=== PATIENT | male | born 1965 | race Caucasian/White ===

== ENCOUNTER 2020-12-03 16:53 | Inpatient (IN) | payer BC ==
[~2020-12-03] VITALS: Ht 175.3 cm; Wt 109.0 kg
--- NOTE | 2020-12-03 17:06 | NUR ---
AYAD ERICKSON as transfer from [facility]. C/O SOB with leg swelling x7 months, worse over last 2 days. Pt with frequent productive cough. Pt diagnosed with PNA and possible sepsis at previous facility. Pt denies pain, is able to speak in full sentences when not coughing. Pt able to position self for comfort in bed independently. Continuous oxygen, BP and heart monitors applied, all safety measures observed.
--- NOTE | 2020-12-03 17:07 | NUR ---
Dr. Marcelino at bedside to evaluate pt.
[2020-12-03] MEDS ORDERED: METHYLPREDNISOLONE SOD SUCC IV ONE (17:30)
[2020-12-03] MEDS ORDERED: ALBUTEROL SULFATE 2.5 MG/3 ML NPPB ONE (17:30)
[2020-12-03] MEDS ORDERED: methylPREDNISolone SOD SUCC 125 MG/2 ML IVPB ONE (17:30)
[2020-12-03] MEDS ORDERED: DEXTROSE 5% IV ONE (17:30)
[2020-12-03 17:49] LABS: MEAN CORPUSCULAR HEMOGLOBIN 27.7 pg (27.5-34.5); MEAN CORPUSCULAR HGB CONC 33.7 g/dL (33.2-36.2); MEAN PLATELET VOLUME 8.2 fL (7.4-10.4); PLATELET COUNT 285 x10^3/uL (130-400); RED CELL DISTRIBUTION WIDTH 14.1 % (9.4-14.8)
[2020-12-03 18:03] LABS: ALANINE AMINOTRANSFERASE 22 U/L (12-78); ANION GAP 7 mmol/L (5-15); CALCIUM 8.4 mg/dL (8.5-10.1); CHLORIDE 100 mmol/L (98-107); CREATININE 2.77 mg/dL (0.7-1.3)
[2020-12-03 18:07] LABS: ALKALINE PHOSPHATASE 78 U/L (45-117); BILIRUBIN,TOTAL 0.5 mg/dL (0.2-1.0); TOTAL PROTEIN 6.9 g/dL (6.4-8.2); TROPONIN I 0.029 ng/mL (0.000-0.045)
[2020-12-03 18:08] LABS: <PLATELET ESTIMATE> ADEQUATE; <PLT MORPHOLOGY> NORMAL PLT MORPH; <RBC MORPHOLOGY> NORMAL; BAND#(MANUAL) 3.04 x10^3/uL; BANDS%(MANUAL) 14 % (0-7); LYMPH#(MANUAL) 0.65 x10^3/uL (1-3.4); LYMPHS% (MANUAL) 3 % (22-44); MONOS#(MANUAL) 0.43 x10^3/uL (0.3-2.7); MONOS% (MANUAL) 2 % (2-9); PMNS WITH VACUOLES 1+; SEG#(MANUAL) 17.58 x10^3/uL (1.8-6.8); SEGS% (MANUAL) 81 % (42-75)
--- NOTE | 2020-12-03 18:27 | NUR ---
US tech at bedside to perform ordered studies.
[2020-12-03] MEDS ORDERED: ONDANSETRON 2MG/ML, 2ML IVPush PRN ×2 (18:30→19:30)
--- NOTE | 2020-12-03 18:38 | NUR ---
Discussed with Dr. Marcelino that pt has not had any fluid bolus and critical lab results. Sepsis flow sheet reviewed. Orders recieved for 500mL NS bolus. IVF initiated at this time.
--- NOTE | 2020-12-03 18:58 | NUR ---
RECEIEVED REPORT FROM ROSETTA SUGGS. TRANSFER OF CARE.
[2020-12-03] MEDS ORDERED: SODIUM CHLORIDE 0.9%, 500ML IVBOLUS ONE (19:00)
[2020-12-03] MEDS ORDERED: ONDANSETRON 2MG/ML, 2ML ONE (19:08)
--- NOTE | 2020-12-03 19:13 | NUR ---
Patient is resting comfortably in bed. Bed in lowest, rails engaged, call light on lap. Vital Signs within normal limits. WCTM. pt medicated per emar due to vomitting 15 minutes ago and eeling mildly nauscious. no additional needs or questions at this time.
[2020-12-03] MEDS ORDERED: METF500T17 PO (19:17)
[2020-12-03] MEDS ORDERED: INSU100I11 SC (19:17)
[2020-12-03] MEDS ORDERED: INSU100I13 SC (19:17)
[2020-12-03] MEDS ORDERED: DOCUSATE 100 MG CAPSULE PO PRN (19:30)
[2020-12-03] MEDS ORDERED: ACETAMINOPHEN 325 MG TABLET PO PRN (19:30)
[2020-12-03] MEDS ORDERED: CYCLOBENZAPRINE 10 MG TABLET PO PRN (19:30)
[2020-12-03] MEDS ORDERED: NITROGLYCERIN 0.4 MG/SPRAY SL PRN (19:30)
[2020-12-03] MEDS ORDERED: morphine SULFATE 10 MG/ML, 1ML IVPush PRN (19:30)
[2020-12-03] MEDS ORDERED: FUROSEMIDE 40 MG/4 ML IV ONE (19:30)
[2020-12-03] MEDS ORDERED: hydrALAzine 20 MG/ML, 1ML IVPush PRN (19:30)
[2020-12-03] MEDS ORDERED: NITROGLYCERIN 0.4 MG BOTTLE (25 TABS) SL PRN (19:30)
[2020-12-03] MEDS ORDERED: GUAIFENESIN/DM 200-20MG, 10ML UDC PO PRN (19:30)
[2020-12-03] MEDS: CEFTRIAXONE 2 GM in DEXTROSE 5% 50 ML IVPB SCH (19:30)
[2020-12-03] MEDS ORDERED: FUROSEMIDE 40 MG/4 ML ONE (19:55)
[2020-12-03] MEDS ORDERED: HEPARIN 5,000 UNITS/ML, 1ML ONE (19:55)
[2020-12-03] MEDS: HEPARIN 5,000 UNITS/ML, 1ML SQ SCH (20:07)
[2020-12-03 20:38] LABS: TROPONIN I 0.021 ng/mL (0.000-0.045)
--- NOTE | 2020-12-03 20:51 | NUR ---
PT REQUESTING FOOD. GAVE PT TURKEY AND CHEESE SANDWICH WITH SUNCHIPS. AT BEDSIDE. NADN. OSORIO BED IN LOW POSITION, RAILS ENGAGED. CALL LIGHT WITHIN REACH
--- NOTE | 2020-12-03 21:10 | NUR ---
STEVIE [phone]
--- NOTE | 2020-12-03 21:11 | NUR ---
PT ABLE TO EAT BITES OF HIS FOOD
--- NOTE | 2020-12-03 21:55 | NUR ---
GAVE REPORT TO SONG SUGGS. ROOM [id number]
[2020-12-03 22:00] VITALS: BP 110/71
--- NOTE | 2020-12-03 22:06 | NUR ---
pt transfered to floor. pt condition unchanged. felicitas.
[2020-12-03] MEDS: INSULIN GLARGINE 100 UNITS/ML, PEN SQ-INSULIN SCH (22:36)
[2020-12-03] MEDS: INSULIN REGULAR 100 UNITS/ML, 3ML VIAL SQ-INSULIN SCH (22:36)
[2020-12-04 01:18] VITALS: BP 118/68
[2020-12-04 02:08] LABS: TROPONIN I < 0.015 ng/mL (0.000-0.045)
[2020-12-04] MEDS: HEPARIN 5,000 UNITS/ML, 1ML SQ SCH ×3 (03:51→19:36)
[2020-12-04 05:58] LABS: MEAN CORPUSCULAR HEMOGLOBIN 27.8 pg (27.5-34.5); MEAN CORPUSCULAR HGB CONC 33.3 g/dL (33.2-36.2); MEAN PLATELET VOLUME 8.8 fL (7.4-10.4); PLATELET COUNT 291 x10^3/uL (130-400); RED BLOOD COUNT 3.65 x10^6/uL (4.38-5.82); RED CELL DISTRIBUTION WIDTH 14.3 % (9.4-14.8)
[2020-12-04 06:07] LABS: CHLORIDE 103 mmol/L (98-107)
[2020-12-04 06:29] LABS: <RBC MORPHOLOGY> NORMAL; BAND#(MANUAL) 4.54 x10^3/uL; BANDS%(MANUAL) 24 % (0-7); LYMPH#(MANUAL) 0.95 x10^3/uL (1-3.4); LYMPHS% (MANUAL) 5 % (22-44); MONOS#(MANUAL) 0.57 x10^3/uL (0.3-2.7); MONOS% (MANUAL) 3 % (2-9); SEG#(MANUAL) 12.85 x10^3/uL (1.8-6.8); SEGS% (MANUAL) 68 % (42-75)
[2020-12-04 06:30] LABS: <PLATELET ESTIMATE> ADEQUATE; <PLT MORPHOLOGY> NORMAL PLT MORPH
[2020-12-04 06:39] LABS: % IRON SATURATION 9 % (20-55); ANION GAP 6 mmol/L (5-15); CALCIUM 8.1 mg/dL (8.5-10.1); CREATININE 2.87 mg/dL (0.7-1.3); IRON LEVEL 16 mcg/dL (65-175); TOTAL IRON BINDING CAPACITY 186 mcg/dL (250-450)
[2020-12-04 06:42] VITALS: BP 118/75
[2020-12-04] MEDS: INSULIN REGULAR 100 UNITS/ML, 3ML VIAL SQ-INSULIN SCH ×4 (07:00→20:27)
[2020-12-04] MEDS ORDERED: REGADENOSON 0.4 MG/5 ML SYRINGE ONE (08:08)
[2020-12-04] MEDS ORDERED: AZITHROMYCIN 500 MG TABLET PO SCH (09:00)
[2020-12-04] MEDS: DILTIAZEM 5 MG/ML, 5ML IVPush PRN ×2 (10:25→10:51)
[2020-12-04 10:27] VITALS: BP 122/77
[2020-12-04] MEDS: FUROSEMIDE 20 MG/2 ML IV SCH ×2 (10:27→17:18)
[2020-12-04] MEDS ORDERED: LOSA100T14 PO (12:12)
[2020-12-04] MEDS ORDERED: ATOR20TA37 PO (12:12)
[2020-12-04] MEDS: DILTIAZEM 125 MG in SODIUM CHLORIDE 0.9% 100 ML IV SCH (12:23)
[2020-12-04 12:45] VITALS: BP 113/72
[2020-12-04] MEDS ORDERED: ALBUTEROL SULFATE 2.5 MG/3 ML NPPB PRN (17:30)
[2020-12-04] MEDS: CEFTRIAXONE 2 GM in DEXTROSE 5% 50 ML IVPB SCH (19:36)
[2020-12-04 20:02] VITALS: BP 118/72
[2020-12-04] MEDS: DOXYCYCLINE 100 MG in DEXTROSE 5% 250 ML IV SCH (20:26)
[2020-12-04] MEDS: INSULIN GLARGINE 100 UNITS/ML, PEN SQ-INSULIN SCH (20:27)
[2020-12-05] MEDS: DILTIAZEM 125 MG in SODIUM CHLORIDE 0.9% 100 ML IV SCH (00:10)
[2020-12-05 01:45] VITALS: BP 124/74
[2020-12-05] MEDS: HEPARIN 5,000 UNITS/ML, 1ML SQ SCH ×3 (03:23→19:53)
[2020-12-05 05:01] LABS: BASOPHILS % (AUTO) 0 % (0-1); EOSINOPHILS % (AUTO) 1 % (1-7); LYMPHOCYTES % (AUTO) 8 % (22-44); MEAN CORPUSCULAR HEMOGLOBIN 27.6 pg (27.5-34.5); MEAN CORPUSCULAR HGB CONC 33.2 g/dL (33.2-36.2); MEAN PLATELET VOLUME 8.7 fL (7.4-10.4); MONOCYTES % (AUTO) 10 % (2-9); NEUTROPHILS % (AUTO) 82 % (42-75); PLATELET COUNT 271 x10^3/uL (130-400); RED BLOOD COUNT 3.57 x10^6/uL (4.38-5.82); RED CELL DISTRIBUTION WIDTH 14.2 % (9.4-14.8)
[2020-12-05 05:10] LABS: ANION GAP 10 mmol/L (5-15); CALCIUM 8.4 mg/dL (8.5-10.1); CHLORIDE 101 mmol/L (98-107); CREATININE 3.24 mg/dL (0.7-1.3)
[2020-12-05] MEDS: FUROSEMIDE 20 MG/2 ML IV SCH (08:02)
[2020-12-05] MEDS: DOXYCYCLINE 100 MG in DEXTROSE 5% 250 ML IV SCH ×2 (08:02→20:00)
[2020-12-05] MEDS: INSULIN REGULAR 100 UNITS/ML, 3ML VIAL SQ-INSULIN SCH ×4 (08:02→20:57)
[2020-12-05 08:30] VITALS: BP 123/80
[2020-12-05] MEDS: METOPROLOL TARTRATE 25 MG TAB PO SCH ×2 (11:19→17:25)
[2020-12-05] MEDS: OXYcodone/APAP 5/325MG TABLET PO PRN (12:52)
[2020-12-05 13:06] LABS: CALCIUM 8.5 mg/dL (8.5-10.1)
[2020-12-05 16:20] VITALS: BP 106/67
[2020-12-05 17:29] LABS: MICROSCOPIC INDICATED
[2020-12-05] MEDS: CEFTRIAXONE 2 GM in DEXTROSE 5% 50 ML IVPB SCH (19:53)
[2020-12-05 20:00] VITALS: BP 155/92
[2020-12-05] MEDS: INSULIN GLARGINE 100 UNITS/ML, PEN SQ-INSULIN SCH (20:56)
[2020-12-05] MEDS: ATORVASTATIN 40 MG TABLET PO SCH (20:57)
[2020-12-06] VITALS (7 sets, daily range): BP systolic 122–160; BP diastolic 74–90
[2020-12-06] MEDS: ASPIRIN 81 MG TABLET EC PO SCH (05:29)
[2020-12-06] MEDS: HEPARIN 5,000 UNITS/ML, 1ML SQ SCH ×3 (05:29→20:36)
[2020-12-06] MEDS: METOPROLOL TARTRATE 25 MG TAB PO SCH ×2 (05:29→16:56)
[2020-12-06 05:34] LABS: BASOPHILS % (AUTO) 0 % (0-1); EOSINOPHILS % (AUTO) 2 % (1-7); LYMPHOCYTES % (AUTO) 13 % (22-44); MEAN CORPUSCULAR HEMOGLOBIN 27.4 pg (27.5-34.5); MEAN CORPUSCULAR HGB CONC 32.8 g/dL (33.2-36.2); MEAN PLATELET VOLUME 8.7 fL (7.4-10.4); MONOCYTES % (AUTO) 10 % (2-9); NEUTROPHILS % (AUTO) 75 % (42-75); PLATELET COUNT 349 x10^3/uL (130-400); RED BLOOD COUNT 3.88 x10^6/uL (4.38-5.82); RED CELL DISTRIBUTION WIDTH 14.4 % (9.4-14.8)
[2020-12-06 05:50] LABS: CHLORIDE 102 mmol/L (98-107)
[2020-12-06 05:56] LABS: ANION GAP 10 mmol/L (5-15); CALCIUM 8.6 mg/dL (8.5-10.1); CREATININE 2.82 mg/dL (0.7-1.3)
[2020-12-06] MEDS: DOXYCYCLINE 100 MG in DEXTROSE 5% 250 ML IV SCH ×2 (09:32→20:35)
[2020-12-06] MEDS: INSULIN REGULAR 100 UNITS/ML, 3ML VIAL SQ-INSULIN SCH ×4 (09:32→20:37)
[2020-12-06] MEDS: OXYcodone/APAP 5/325MG TABLET PO PRN (10:07)
[2020-12-06] MEDS: DILTIAZEM 5 MG/ML, 5ML IVPush PRN (10:33)
[2020-12-06] MEDS ORDERED: FUROSEMIDE 40 MG/4 ML IV SCH (11:30)
[2020-12-06] MEDS ORDERED: ALBUMIN HUMAN 25% 100 ML IV SCH (12:00)
[2020-12-06] MEDS: AMIODARONE 200 MG TABLET PO SCH ×2 (12:56→20:35)
[2020-12-06] MEDS: ISOSORBIDE DINITRATE 10 MG TABLET PO SCH ×2 (16:55→20:36)
[2020-12-06] MEDS ORDERED: METOPROLOL TARTRATE 50 MG TAB PO SCH (18:00)
[2020-12-06] MEDS: CEFTRIAXONE 2 GM in DEXTROSE 5% 50 ML IVPB SCH (20:35)
[2020-12-06] MEDS: ATORVASTATIN 40 MG TABLET PO SCH (20:36)
[2020-12-06] MEDS: INSULIN GLARGINE 100 UNITS/ML, PEN SQ-INSULIN SCH (20:36)
[2020-12-07 03:00] VITALS: BP 144/84
[2020-12-07] MEDS: OXYcodone/APAP 5/325MG TABLET PO PRN (03:02)
[2020-12-07] MEDS: HEPARIN 5,000 UNITS/ML, 1ML SQ SCH ×3 (05:32→22:19)
[2020-12-07] MEDS: METOPROLOL TARTRATE 25 MG TAB PO SCH ×2 (05:32→17:05)
[2020-12-07] MEDS: ASPIRIN 81 MG TABLET EC PO SCH (05:32)
[2020-12-07] MEDS: INSULIN REGULAR 100 UNITS/ML, 3ML VIAL SQ-INSULIN SCH ×4 (07:00→22:18)
[2020-12-07 07:57] VITALS: BP 131/82
[2020-12-07] MEDS: CHOLECALCIFEROL 1,000 UNIT TABLET PO SCH (08:20)
[2020-12-07] MEDS: ALBUMIN HUMAN 25% 100 ML IV SCH ×2 (08:20→09:42)
[2020-12-07] MEDS: AMIODARONE 200 MG TABLET PO SCH ×2 (08:20→22:20)
[2020-12-07] MEDS: DOXYCYCLINE 100 MG in DEXTROSE 5% 250 ML IV SCH ×2 (08:23→22:20)
[2020-12-07] MEDS: ISOSORBIDE DINITRATE 10 MG TABLET PO SCH ×3 (08:23→22:19)
[2020-12-07] MEDS: METOLAZONE 5 MG TABLET PO SCH ×2 (11:02→17:05)
[2020-12-07] MEDS: FUROSEMIDE 40 MG/4 ML IV SCH ×2 (11:02→17:42)
[2020-12-07 11:45] LABS: BASOPHILS % (AUTO) 1 % (0-1); EOSINOPHILS % (AUTO) 2 % (1-7); LYMPHOCYTES % (AUTO) 12 % (22-44); MEAN CORPUSCULAR HEMOGLOBIN 27.7 pg (27.5-34.5); MEAN CORPUSCULAR HGB CONC 33.4 g/dL (33.2-36.2); MEAN PLATELET VOLUME 8.1 fL (7.4-10.4); MONOCYTES % (AUTO) 10 % (2-9); NEUTROPHILS % (AUTO) 76 % (42-75); PLATELET COUNT 316 x10^3/uL (130-400); RED BLOOD COUNT 3.47 x10^6/uL (4.38-5.82); RED CELL DISTRIBUTION WIDTH 14.2 % (9.4-14.8)
[2020-12-07 11:56] LABS: ALANINE AMINOTRANSFERASE 27 U/L (12-78); ALBUMIN 2.2 g/dL (3.4-5.0); ANION GAP 10 mmol/L (5-15); CALCIUM 8.6 mg/dL (8.5-10.1); CHLORIDE 104 mmol/L (98-107); CREATININE 2.21 mg/dL (0.7-1.3)
[2020-12-07 11:58] LABS: ALKALINE PHOSPHATASE 102 U/L (45-117); BILIRUBIN,TOTAL 0.3 mg/dL (0.2-1.0); TOTAL PROTEIN 6.8 g/dL (6.4-8.2)
[2020-12-07 15:15] VITALS: BP 144/76
[2020-12-07 15:50] VITALS: BP 144/76
[2020-12-07 20:19] VITALS: BP 148/84
[2020-12-07] MEDS: INSULIN GLARGINE 100 UNITS/ML, PEN SQ-INSULIN SCH (22:19)
[2020-12-07] MEDS: ATORVASTATIN 40 MG TABLET PO SCH (22:19)
[2020-12-07] MEDS: CEFTRIAXONE 2 GM in DEXTROSE 5% 50 ML IVPB SCH (22:20)
[2020-12-08] VITALS (7 sets, daily range): BP systolic 101–148; BP diastolic 66–84
[2020-12-08] MEDS: OXYcodone/APAP 5/325MG TABLET PO PRN ×2 (00:31→21:29)
[2020-12-08 05:23] LABS: BASOPHILS % (AUTO) 1 % (0-1); EOSINOPHILS % (AUTO) 3 % (1-7); LYMPHOCYTES % (AUTO) 15 % (22-44); MEAN CORPUSCULAR HEMOGLOBIN 27.6 pg (27.5-34.5); MEAN CORPUSCULAR HGB CONC 33.7 g/dL (33.2-36.2); MEAN PLATELET VOLUME 8.2 fL (7.4-10.4); MONOCYTES % (AUTO) 10 % (2-9); NEUTROPHILS % (AUTO) 71 % (42-75); PLATELET COUNT 356 x10^3/uL (130-400); RED BLOOD COUNT 3.55 x10^6/uL (4.38-5.82); RED CELL DISTRIBUTION WIDTH 14.3 % (9.4-14.8)
[2020-12-08 05:30] LABS: CHLORIDE 103 mmol/L (98-107)
[2020-12-08 05:38] LABS: ALANINE AMINOTRANSFERASE 25 U/L (12-78); ALKALINE PHOSPHATASE 112 U/L (45-117); ANION GAP 6 mmol/L (5-15); BILIRUBIN,TOTAL 0.2 mg/dL (0.2-1.0); CALCIUM 8.8 mg/dL (8.5-10.1); CREATININE 2.29 mg/dL (0.7-1.3); TOTAL PROTEIN 6.7 g/dL (6.4-8.2)
[2020-12-08] MEDS: HEPARIN 5,000 UNITS/ML, 1ML SQ SCH ×3 (05:54→21:28)
[2020-12-08] MEDS: ASPIRIN 81 MG TABLET EC PO SCH (05:54)
[2020-12-08] MEDS: METOPROLOL TARTRATE 25 MG TAB PO SCH (05:54)
[2020-12-08] MEDS: INSULIN REGULAR 100 UNITS/ML, 3ML VIAL SQ-INSULIN SCH ×4 (07:00→21:28)
[2020-12-08] MEDS: CHOLECALCIFEROL 1,000 UNIT TABLET PO SCH (08:05)
[2020-12-08] MEDS: ISOSORBIDE DINITRATE 10 MG TABLET PO SCH ×3 (08:05→21:29)
[2020-12-08] MEDS: AMIODARONE 200 MG TABLET PO SCH ×2 (08:06→21:28)
[2020-12-08] MEDS: ALBUMIN HUMAN 25% 100 ML IV SCH (08:08)
[2020-12-08] MEDS: METOLAZONE 5 MG TABLET PO SCH ×2 (08:27→16:58)
[2020-12-08] MEDS: CLINDAMYCIN 300 MG CAPSULE PO SCH ×2 (10:15→16:58)
[2020-12-08] MEDS: FUROSEMIDE 40 MG/4 ML IV SCH ×2 (11:12→19:19)
[2020-12-08] MEDS ORDERED: ERTAPENEM 0.5 GM in SODIUM CHLORIDE 0.9% 50 ML IV SCH (17:00)
[2020-12-08] MEDS: METOPROLOL SUCCINATE 50 MG TAB.ER.24H PO SCH (19:19)
[2020-12-08] MEDS: INSULIN GLARGINE 100 UNITS/ML, PEN SQ-INSULIN SCH (21:27)
[2020-12-08] MEDS: ATORVASTATIN 40 MG TABLET PO SCH (21:29)
[2020-12-09 02:00] VITALS: BP 140/68
[2020-12-09] MEDS: CLINDAMYCIN 300 MG CAPSULE PO SCH ×2 (02:12→08:24)
[2020-12-09 04:08] VITALS: BP 140/68
[2020-12-09] MEDS: ASPIRIN 81 MG TABLET EC PO SCH (05:34)
[2020-12-09] MEDS: HEPARIN 5,000 UNITS/ML, 1ML SQ SCH ×2 (05:34→15:26)
[2020-12-09] MEDS: OXYcodone/APAP 5/325MG TABLET PO PRN (05:35)
[2020-12-09] MEDS: METOPROLOL SUCCINATE 50 MG TAB.ER.24H PO SCH (05:35)
[2020-12-09 05:44] LABS: MEAN CORPUSCULAR HEMOGLOBIN 27.2 pg (27.5-34.5); MEAN PLATELET VOLUME 8.1 fL (7.4-10.4); PLATELET COUNT 436 x10^3/uL (130-400); RED BLOOD COUNT 3.75 x10^6/uL (4.38-5.82); RED CELL DISTRIBUTION WIDTH 14.1 % (9.4-14.8)
[2020-12-09 05:51] LABS: ALBUMIN 2.1 g/dL (3.4-5.0); ANION GAP 8 mmol/L (5-15); CALCIUM 8.8 mg/dL (8.5-10.1); CHLORIDE 102 mmol/L (98-107)
[2020-12-09 05:55] LABS: ALANINE AMINOTRANSFERASE 28 U/L (12-78); ALKALINE PHOSPHATASE 112 U/L (45-117); BILIRUBIN,TOTAL 0.3 mg/dL (0.2-1.0); CREATININE 2.33 mg/dL (0.7-1.3); TOTAL PROTEIN 7.1 g/dL (6.4-8.2)
[2020-12-09 06:14] LABS: <PLATELET ESTIMATE> ADEQUATE; <PLT MORPHOLOGY> NORMAL PLT MORPH; <RBC MORPHOLOGY> NORMAL; BANDS%(MANUAL) 4 % (0-7); EOS#(MANUAL) 0.37 x10^3/uL (0.0-0.4); EOS% (MANUAL) 3 % (1-7); LYMPH#(MANUAL) 1.24 x10^3/uL (1-3.4); LYMPHS% (MANUAL) 10 % (22-44); MONOS#(MANUAL) 1.24 x10^3/uL (0.3-2.7); MONOS% (MANUAL) 10 % (2-9); SEG#(MANUAL) 9.05 x10^3/uL (1.8-6.8); SEGS% (MANUAL) 73 % (42-75)
[2020-12-09 08:15] VITALS: BP 122/78
[2020-12-09] MEDS: ALBUMIN HUMAN 25% 100 ML IV SCH (08:23)
[2020-12-09] MEDS: ISOSORBIDE DINITRATE 10 MG TABLET PO SCH ×3 (08:25→20:17)
[2020-12-09] MEDS: CHOLECALCIFEROL 1,000 UNIT TABLET PO SCH (08:25)
[2020-12-09] MEDS: AMIODARONE 200 MG TABLET PO SCH ×2 (08:26→20:16)
[2020-12-09] MEDS: INSULIN REGULAR 100 UNITS/ML, 3ML VIAL SQ-INSULIN SCH ×4 (08:27→21:11)
[2020-12-09] MEDS: METOLAZONE 5 MG TABLET PO SCH (09:31)
[2020-12-09] MEDS: FUROSEMIDE 40 MG/4 ML IV SCH ×2 (10:28→15:24)
[2020-12-09 13:19] VITALS: BP 112/71
[2020-12-09] MEDS: FUROSEMIDE 80 MG TABLET PO SCH (15:24)
[2020-12-09] MEDS: CEFTRIAXONE 2 GM in DEXTROSE 5% 50 ML IVPB SCH (15:26)
[2020-12-09 19:13] VITALS: BP 115/69
[2020-12-09 20:15] VITALS: BP 119/71
[2020-12-09] MEDS: ATORVASTATIN 40 MG TABLET PO SCH (20:16)
[2020-12-09] MEDS: INSULIN GLARGINE 100 UNITS/ML, PEN SQ-INSULIN SCH (21:10)
[2020-12-10] MEDS: HEPARIN 5,000 UNITS/ML, 1ML SQ SCH ×2 (00:16→09:26)
[2020-12-10 00:21] VITALS: BP 130/77
[2020-12-10] MEDS: OXYcodone/APAP 5/325MG TABLET PO PRN ×2 (00:25→11:25)
[2020-12-10 04:58] LABS: MEAN CORPUSCULAR HEMOGLOBIN 27.8 pg (27.5-34.5); MEAN CORPUSCULAR HGB CONC 33.8 g/dL (33.2-36.2); PLATELET COUNT 481 x10^3/uL (130-400); RED CELL DISTRIBUTION WIDTH 14.5 % (9.4-14.8)
[2020-12-10 05:09] LABS: ALANINE AMINOTRANSFERASE 24 U/L (12-78); ALBUMIN 2.5 g/dL (3.4-5.0); ANION GAP 6 mmol/L (5-15); CALCIUM 9.1 mg/dL (8.5-10.1); CHLORIDE 100 mmol/L (98-107)
[2020-12-10 05:12] LABS: ALKALINE PHOSPHATASE 90 U/L (45-117); BILIRUBIN,TOTAL 0.4 mg/dL (0.2-1.0); CREATININE 2.56 mg/dL (0.7-1.3); TOTAL PROTEIN 7.1 g/dL (6.4-8.2)
[2020-12-10 05:36] VITALS: BP 138/80
[2020-12-10] MEDS: ASPIRIN 81 MG TABLET EC PO SCH (05:37)
[2020-12-10] MEDS: METOPROLOL SUCCINATE 50 MG TAB.ER.24H PO SCH (05:37)
[2020-12-10 05:57] LABS: BAND#(MANUAL) 0.13 x10^3/uL; BANDS%(MANUAL) 1 % (0-7); EOS#(MANUAL) 0.52 x10^3/uL (0.0-0.4); EOS% (MANUAL) 4 % (1-7); LYMPH#(MANUAL) 2.36 x10^3/uL (1-3.4); LYMPHS% (MANUAL) 18 % (22-44); METAMYELOCYTES# (MANUAL) 0.39 x10^3/uL (0-0); METAMYELOCYTES% (MANUAL) 3 % (0-1); MONOS#(MANUAL) 1.57 x10^3/uL (0.3-2.7); MONOS% (MANUAL) 12 % (2-9); SEG#(MANUAL) 8.12 x10^3/uL (1.8-6.8); SEGS% (MANUAL) 62 % (42-75)
[2020-12-10 05:58] LABS: <PLATELET ESTIMATE> INCREASED; <PLT MORPHOLOGY> NORMAL PLT MORPH; <RBC MORPHOLOGY> NORMAL
[2020-12-10 07:09] VITALS: BP 137/81
[2020-12-10] MEDS: INSULIN REGULAR 100 UNITS/ML, 3ML VIAL SQ-INSULIN SCH ×2 (07:45→11:24)
[2020-12-10] MEDS: FUROSEMIDE 40 MG/4 ML IV SCH (08:33)
[2020-12-10] MEDS: CHOLECALCIFEROL 1,000 UNIT TABLET PO SCH (09:16)
[2020-12-10] MEDS: AMIODARONE 200 MG TABLET PO SCH (09:16)
[2020-12-10] MEDS: ISOSORBIDE DINITRATE 10 MG TABLET PO SCH (09:17)
[2020-12-10] MEDS: ALBUMIN HUMAN 25% 100 ML IV SCH (09:26)
[2020-12-10] MEDS: FUROSEMIDE 80 MG TABLET PO SCH (11:09)
[2020-12-10] MEDS ORDERED: CHOL10003 PO (13:45)
[2020-12-10] MEDS ORDERED: METO-93 PO (13:45)
[2020-12-10] MEDS ORDERED: AMIO200T42 PO (13:45)
[2020-12-10] MEDS ORDERED: ISOS10TA2 PO (13:45)
[2020-12-10] MEDS ORDERED: ATOR40TA78 PO (13:45)
[2020-12-10] MEDS ORDERED: ASPI81TA45 PO (13:45)
[2020-12-10] MEDS ORDERED: CEPH750C9 PO (13:45)
[2020-12-10] MEDS ORDERED: HYDR-3341 PO (13:45)
[2020-12-10] MEDS ORDERED: FURO80TA3 PO (13:45)
[2020-12-10 14:08] VITALS: BP 131/74
[2020-12-10] MEDS: CEFTRIAXONE 2 GM in DEXTROSE 5% 50 ML IVPB SCH (15:01)
== END 2020-12-10 16:08 | disposition home or self-care (01) | DRG 871 ==
LOC: ED 17:50 → EDIP 18:23 → 5SO 22:13
PROVIDERS: ADMIT Internal Medicine; ATTEND Hospitalist
DX: A41.9 Sepsis, unspecified organism (principal); J18.9 Pneumonia, unspecified organism; I50.43 Acute on chronic combined systolic (congestive) and diastolic (congestive) heart failure; E87.1 Hypo-osmolality and hyponatremia; I13.0 Hypertensive heart and chronic kidney disease with heart failure and stage 1 through stage 4 chronic kidney disease, or unspecified chronic kidney disease; I42.9 Cardiomyopathy, unspecified; L03.116 Cellulitis of left lower limb; N17.9 Acute kidney failure, unspecified; D63.8 Anemia in other chronic diseases classified elsewhere; E11.22 Type 2 diabetes mellitus with diabetic chronic kidney disease; E11.65 Type 2 diabetes mellitus with hyperglycemia; E66.01 Morbid (severe) obesity due to excess calories; F17.200 Nicotine dependence, unspecified, uncomplicated; I48.91 Unspecified atrial fibrillation; N18.9 Chronic kidney disease, unspecified; R65.20 Severe sepsis without septic shock; Z79.4 Long term (current) use of insulin; Z83.3 Family history of diabetes mellitus; Z68.35 Body mass index [BMI] 35.0-35.9, adult; Z79.899 Other long term (current) drug therapy
CPT/HCPCS: 36415; 84145; 93017; 99285; C8929; 71045; 76770; 78452; 80048; 80053; 81001; 82306; 82310; 82570; 82607; 82728; 82962; 83036; 83540; 83550; 83605; 83735; 83880; 83970; 84100; 84443; 84484; 84540; 85025; 87040; 93005; 93970; 94640; G0378; J0696; J1335; J1644; J1815; J1940; J2405; J2785; J7060; P9047; Q9957; A9502; J7040